=== PATIENT | female | born 1965 | race Caucasian/White ===

== ENCOUNTER 2016-06-22 19:44 | Emergency (ER) | payer OTHER ==
[~2016-06-22] VITALS: Ht 160 cm; Wt 100.0 kg
[2016-06-22] MEDS ORDERED: METF500T4 PO (19:56)
[2016-06-22 20:01] LABS: GLUCOSE,POINT OF CARE 263 MG/DL (70-110)
[2016-06-22 21:15] LABS: GLUCOSE,POINT OF CARE 317 MG/DL (70-110)
[2016-06-22] MEDS ORDERED: SODIUM CHLORIDE 0.9% 500 ML IV ONE (21:30)
[2016-06-22] MEDS ORDERED: INSULIN REGULAR, HUMAN 100 UNITS/ML IVP ONE (21:30)
[2016-06-22 21:41] LABS: BASOPHILS % (AUTO) 0.5 % (0.0-2.0); EOSINOPHILS % (AUTO) 2.8 % (1.0-6.0); HEMATOCRIT 36.1 % (36-46); HEMOGLOBIN 12.3 g/dL (12.0-16.0); LYMPHOCYTES # (AUTO) 2.6 K/uL (1.0-4.8); LYMPHOCYTES % (AUTO) 25.5 % (22.0-44.0); MEAN CORPUSCULAR HEMOGLOBIN 29.3 pg (26.0-34.0); MEAN CORPUSCULAR VOLUME 86 fL (80-100); MONOCYTES # (AUTO) 0.5 K/uL (0.1-1.0); MONOCYTES % (AUTO) 5.2 % (2.0-9.0); NEUTROPHILS # (AUTO) 6.8 K/uL (1.8-7.7); PLATELET COUNT (AUTO) 233 K/uL (150-450); RED CELL DISTRIBUTION WIDTH 13.9 % (11.5-14.5); WHITE BLOOD COUNT (AUTO) 10.3 K/uL (4.5-11.0)
[2016-06-22 21:50] LABS: ANION GAP 6 mmol/L (8-16); CALCIUM, TOTAL 9.3 mg/dL (8.8-10.5); CARBON DIOXIDE 30 mmol/L (22-29); CHLORIDE 100 mmol/L (98-107); CREATININE 0.68 mg/dL (0.60-1.30); GLOMERULAR FILTR. RATE CALC > 60 mL/min (>60); POTASSIUM 4.3 mmol/L (3.5-5.1); SODIUM SERUM 136 mmol/L (136-145); UREA NITROGEN, BLOOD 14 mg/dL (7-18)
[2016-06-22 21:50] LABS: APPEARANCE,URINE CLOUDY (CLEAR); GLUCOSE, URINE (UA) >=1000 mg/dL (NEGATIVE); KETONES,URINE NEGATIVE (NEGATIVE); LEUKOCYTE ESTERASE ,URINE NEGATIVE (NEGATIVE); OCCULT BLOOD,URINE NEGATIVE (NEGATIVE); PH,URINE 7.5 (5.0-8.0); PROTEIN,URINE TRACE (NEGATIVE)
[2016-06-22 21:52] LABS: ADD UA MICROSCOPIC YES
[2016-06-22 21:54] LABS: PROTHROMBIN TIME 10.4 SEC (9.4-11.6)
[2016-06-22 21:56] LABS: ALANINE AMINOTRANSFERASE 53 U/L (12-78); ALBUMIN 3.3 g/dL (3.4-5.0); ASPARTATE AMINOTRANSFERASE 24 U/L (15-37); BILIRUBIN,TOTAL 0.2 mg/dL (0.1-1.0); CREATINE KINASE, TOTAL 56 U/L (26-192); TOTAL PROTEIN, SERUM 8.1 g/dL (6.4-8.2)
[2016-06-22 22:07] LABS: B-TYPE NATRIURETIC PEPTIDE < 5 pg/mL (0-100)
[2016-06-22 22:20] LABS: RBC,URINE None Seen /HPF (0-2); SQUAMOUS EPITHELIAL CELL,UR Rare /LPF (None Seen); WBC,URINE 0-2 /HPF (0-5)
[2016-06-22 23:11] LABS: GLUCOSE,POINT OF CARE 205 MG/DL (70-110)
[2016-06-22] MEDS ORDERED: KETOROLAC TROMETHAMINE 30 MG/ML VIAL IVP ONE (23:30)
[2016-06-23 00:09] VITALS: BP 125/79
== END 2016-06-23 00:12 | disposition home or self-care (01) ==
LOC: EMS 19:50
DX: R25.2 Cramp and spasm (principal); M54.5 Low back pain; E11.9 Type 2 diabetes mellitus without complications
CPT/HCPCS: 36415; 71010; 80053; 81001; 82550; 82962; 83880; 84484; 85025; 85610; 85730; 87086; 93005; 96361; 96374; 96375; 99285; J1815; J1885; J7040

== ENCOUNTER 2020-12-23 13:45 | Emergency (ER) | payer SELFPAY ==
[~2020-12-23] VITALS: Ht 167.6 cm; Wt 95.0 kg
[~2020-12-23 13:45] MED LIST: METF-960 PO
[2020-12-23] MEDS ORDERED: KETOROLAC TROMETHAMINE 60 MG/2 ML VIAL IM ONE (15:30)
[2020-12-23] MEDS ORDERED: ONDANSETRON HCL 4 MG TABLET PO ONE (15:30)
[2020-12-23] MEDS ORDERED: DIAZEPAM 5 MG TABLET PO ONE (15:45)
[2020-12-23 16:56] VITALS: BP 131/72
== END 2020-12-23 17:36 | disposition home or self-care (01) ==
LOC: EMS 13:49
DX: S46.011A Strain of muscle(s) and tendon(s) of the rotator cuff of right shoulder, initial encounter (principal); S40.012A Contusion of left shoulder, initial encounter; S70.02XA Contusion of left hip, initial encounter; E11.9 Type 2 diabetes mellitus without complications; Z79.84 Long term (current) use of oral hypoglycemic drugs; W19.XXXA Unspecified fall, initial encounter; Y93.89 Activity, other specified; Y92.89 Other specified places as the place of occurrence of the external cause; Y99.8 Other external cause status
CPT/HCPCS: 70450; 72125; 73030 ×2; 73060; 73503; 96372; 99285; J1885; Q0162

== ENCOUNTER 2021-04-28 20:55 | Inpatient (IN) | payer MEDICAID ==
[~2021-04-28] VITALS: Ht 162.6 cm; Wt 89.7 kg
[~2021-04-28 20:55] MED LIST changes: +METF-1211 PO; -METF-960 PO
[2021-04-28] MEDS ORDERED: KETOROLAC TROMETHAMINE 30 MG/ML VIAL IVP ONE (21:30)
[2021-04-28] MEDS ORDERED: SODIUM CHLORIDE 0.9% 1,000 ML IV ONE (21:30)
[2021-04-28 21:37] LABS: HEMATOCRIT 38.2 % (36-46); HEMOGLOBIN 13.2 g/dL (12.0-16.0); MEAN CORPUSCULAR HEMOGLOBIN 29.6 pg (26.0-34.0); MEAN CORPUSCULAR HGB CONC 34.5 G/dL (31.0-37.0); MEAN CORPUSCULAR VOLUME 86 fL (80-100); PLATELET COUNT (AUTO) 170 K/uL (150-450); RED BLOOD CELL COUNT(AUTO) 4.45 MIL/uL (4.00-5.20); RED CELL DISTRIBUTION WIDTH 13.4 % (11.5-14.5)
[2021-04-28 21:47] LABS: COVID AG,FIA SOURCE NASAL SWAB
[2021-04-28 21:55] LABS: LACTIC ACID 2.3 mmol/L (0.4-2.0)
[2021-04-28 21:56] LABS: ALANINE AMINOTRANSFERASE 32 U/L (12-78); ALBUMIN 2.7 g/dL (3.4-5.0); ALKALINE PHOSPHATASE 141 U/L (46-116); ANION GAP 18 mmol/L (8-16); ASPARTATE AMINOTRANSFERASE 22 U/L (15-37); BILIRUBIN,TOTAL 0.7 mg/dL (0.1-1.0); CALCIUM, TOTAL 9.1 mg/dL (8.8-10.5); CARBON DIOXIDE 19 mmol/L (22-29); CHLORIDE 92 mmol/L (98-107); GLOMERULAR FILTR. RATE CALC 52 mL/min (>60); SODIUM SERUM 129 mmol/L (136-145); TOTAL PROTEIN, SERUM 8.3 g/dL (6.4-8.2); UREA NITROGEN, BLOOD 24 mg/dL (7-18)
[2021-04-28 21:58] LABS: BAND NEUTROPHILS % (MANUAL) 20 % (0-5); LYMPHOCYTES % (MANUAL) 2 % (22-44); MONOCYTES % (MANUAL) 5 % (2-9); SEGMENTED NEUTROPHILS % 73 % (40-70)
[2021-04-28 22:01] LABS: GLUCOSE,RANDOM 479 mg/dL (70-110)
[2021-04-28] MEDS ORDERED: POTASSIUM CHLORIDE 40 MEQ in SODIUM CHLORIDE 0.45% 1,000 ML IV PRN (22:15)
[2021-04-28] MEDS ORDERED: 0.9% SODIUM CHLORIDE 10 ML SYRINGE IVP PRN (22:15)
[2021-04-28] MEDS ORDERED: DEXTROSE 5%-0.45% SODIUM CHL 1,000 ML IV PRN ×2 (22:15→22:30)
[2021-04-28] MEDS ORDERED: INSULIN LISPRO 100 UNITS/ML SQ PRN (22:15)
[2021-04-28] MEDS ORDERED: INSULIN REGULAR, HUMAN 100 UNITS/ML IVP PRN (22:15)
[2021-04-28] MEDS ORDERED: POTASSIUM CHL 20 MEQ/0.45% NS 1,000 ML IV PRN ×2 (22:15→22:30)
[2021-04-28] MEDS ORDERED: INSULIN REGULAR, HUMAN 100 UNITS/ML IVP ONE ×2 (22:15→22:30)
[2021-04-28] MEDS ORDERED: SODIUM CHLORIDE 0.9% 2,750 ML IV ONE (22:15)
[2021-04-28] MEDS ORDERED: CefTRIAXone 1 GM/DEXTROSE 50 ML IV SCH (22:15)
[2021-04-28] MEDS ORDERED: SODIUM CHLORIDE 0.45% 1,000 ML IV PRN ×2 (22:15→22:30)
[2021-04-28] MEDS ORDERED: INSULIN REGULAR, HUMAN 100 UNITS in SODIUM CHLORIDE 0.9% 99 ML IV PRN ×2 (22:15)
[2021-04-28] MEDS ORDERED: SODIUM CHLORIDE 0.9% 1,000 ML IV SCH ×3 (22:15→22:30)
[2021-04-28] MEDS ORDERED: INSULIN GLARGINE,HUM.REC.ANLOG 100 UNITS/ML SQ SCH (22:15)
[2021-04-28] MEDS ORDERED: DEXTROSE 50%-WATER 25 GM/50 ML SYRINGE IVP PRN ×3 (22:15→22:30)
[2021-04-28] MEDS ORDERED: POTASSIUM PHOS,M-BASIC-D-BASIC 20 MMOL in SODIUM CHLORIDE 0.45% 500 ML IV PRN (22:30)
[2021-04-28] MEDS ORDERED: CefTRIAXone 1 GM/DEXTROSE 50 ML IV ONE (22:30)
[2021-04-28 22:35] LABS: INR 1.1 (0.9-1.1)
[2021-04-28 22:39] LABS: HEMOGLOBIN 11.2 g/dL (12.0-16.0); MEAN CORPUSCULAR HEMOGLOBIN 29.4 pg (26.0-34.0); MEAN CORPUSCULAR HGB CONC 34.1 G/dL (31.0-37.0); MEAN CORPUSCULAR VOLUME 86 fL (80-100); PLATELET COUNT (AUTO) 153 K/uL (150-450); RED BLOOD CELL COUNT(AUTO) 3.82 MIL/uL (4.00-5.20)
[2021-04-28 22:41] LABS: PHOSPHORUS 2.2 mg/dL (2.5-4.9)
[2021-04-28 22:45] LABS: ABG CARBOXYHEMOGLOBIN 0.1 % (0.0-1.5); ABG HCO3 20.2 mmol/L (22.0-26.0); ABG METHEMOGLOBIN 0.2 % (0.0-1.5); ABG OXYGEN CONTENT 14.9 mL/dL (15.0-23.0); ABG OXYHEMOGLOBIN 94.7 % (94.0-100.0); ABG PCO2 31 mmHg (35-45); ABG PH 7.399 (7.35-7.450); ABG TOTAL HEMOGLOBIN 11.1 G/dL (12.0-18.0); PO2, ARTERIAL BG 78.3 mmHg (84.0-92.0); SOURCE, BLOOD GAS ARTERIAL; TEMPERATURE, FAHRENHEIT, BG 98.6 FAHREN (96.0-98.6)
[2021-04-28 22:46] LABS: SITE, BLOOD GAS RT RADIAL
[2021-04-28 22:49] LABS: GLUCOSE,POINT OF CARE 459 MG/DL (70-110)
[2021-04-28 22:52] LABS: BAND NEUTROPHILS % (MANUAL) 16 % (0-5); MONOCYTES % (MANUAL) 5 % (2-9)
[2021-04-28 22:53] LABS: SEGMENTED NEUTROPHILS % 72 % (40-70)
[2021-04-28 22:54] LABS: LYMPHOCYTES % (MANUAL) 7 % (22-44)
[2021-04-28] MEDS: INSULIN REGULAR, HUMAN 100 UNITS in SODIUM CHLORIDE 0.9% 99 ML IV PRN ×2 (23:10)
[2021-04-28 23:19] LABS: CALCIUM, TOTAL 7.6 mg/dL (8.8-10.5); CREATININE 1.02 mg/dL (0.60-1.30); POTASSIUM 3.8 mmol/L (3.5-5.1)
[2021-04-28] MEDS: ATORVASTATIN CALCIUM 40 MG TABLET PO SCH (23:47)
[2021-04-28] MEDS: ASPIRIN 325 MG TABLET PO SCH (23:47)
[2021-04-28] MEDS: HEPARIN SODIUM,PORCINE 5,000 UNITS/ML VIAL SQ SCH (23:48)
[2021-04-28] MEDS: ONDANSETRON HCL 4 MG/2 ML VIAL IVP PRN (23:54)
[2021-04-29 00:14] LABS: BILIRUBIN,URINE NEGATIVE (NEGATIVE); GLUCOSE, URINE (UA) >=1000 mg/dL (NEGATIVE); KETONES,URINE >=80 mg/dL (NEGATIVE); LEUKOCYTE ESTERASE ,URINE NEGATIVE (NEGATIVE); NITRATE,URINE NEGATIVE (NEGATIVE); OCCULT BLOOD,URINE MODERATE (NEGATIVE); PH,URINE 5.5 (5.0-8.0); PROTEIN,URINE SEE CONFIRM (NEGATIVE); UROBILINOGEN,URINE 0.2 mg/dL (<=1.0)
[2021-04-29 00:19] LABS: GLUCOSE,POINT OF CARE 354 MG/DL (70-110)
[2021-04-29] MEDS: NOREPINEPHRINE 4 MG/D5%-WATER 250 ML IV PRN ×2 (00:24→07:11)
[2021-04-29] MEDS: INSULIN REGULAR, HUMAN 100 UNITS in SODIUM CHLORIDE 0.9% 99 ML IV PRN ×4 (01:16→08:13)
[2021-04-29] MEDS: INSULIN REGULAR, HUMAN 100 UNITS/ML IVP PRN ×4 (01:18→09:29)
[2021-04-29 01:19] LABS: GLUCOSE,POINT OF CARE 349 MG/DL (70-110)
[2021-04-29] MEDS ORDERED: *CLINICAL-MEROPENEM DOSING CLINICAL ONE ×3 (01:30→03:30)
[2021-04-29] MEDS: MEROPENEM 1 GM in SODIUM CHLORIDE 0.9% 100 ML IV SCH ×3 (02:01→17:47)
[2021-04-29 02:23] LABS: GLUCOSE,POINT OF CARE 297 MG/DL (70-110)
[2021-04-29 03:00] VITALS: BP 113/50
[2021-04-29] MEDS: ACETAMINOPHEN 325 MG TABLET PO PRN ×3 (03:01→18:26)
[2021-04-29 04:00] VITALS: BP 133/65
[2021-04-29 04:29] LABS: ALANINE AMINOTRANSFERASE 25 U/L (12-78); ALKALINE PHOSPHATASE 110 U/L (46-116); ANION GAP 7 mmol/L (8-16); ASPARTATE AMINOTRANSFERASE 21 U/L (15-37); BILIRUBIN,TOTAL 0.3 mg/dL (0.1-1.0); CALCIUM, TOTAL 7.5 mg/dL (8.8-10.5); CARBON DIOXIDE 23 mmol/L (22-29); CHLORIDE 105 mmol/L (98-107); CREATININE 0.93 mg/dL (0.60-1.30); GLOMERULAR FILTR. RATE CALC > 60 mL/min (>60); GLUCOSE,RANDOM 264 mg/dL (70-110); PHOSPHORUS 1.9 mg/dL (2.5-4.9); POTASSIUM 3.8 mmol/L (3.5-5.1); SODIUM SERUM 135 mmol/L (136-145); TOTAL PROTEIN, SERUM 6.6 g/dL (6.4-8.2); UREA NITROGEN, BLOOD 19 mg/dL (7-18)
[2021-04-29] MEDS: POTASSIUM CHLORIDE 40 MEQ in SODIUM CHLORIDE 0.45% 1,000 ML IV PRN ×2 (05:16→12:25)
[2021-04-29 05:50] LABS: APPEARANCE,URINE CLEAR (CLEAR)
[2021-04-29] MEDS: ONDANSETRON HCL 4 MG/2 ML VIAL IVP PRN ×4 (06:18→22:45)
[2021-04-29 06:44] LABS: BACTERIA,URINE Moderate /HPF (None Seen); SQUAMOUS EPITHELIAL CELL,UR Few /LPF (None Seen); SULFOSALICYLIC ACID,URINE 2+ (Negative)
[2021-04-29 08:00] VITALS: BP 121/63
[2021-04-29 08:03] LABS: ANION GAP 8 mmol/L (8-16); CALCIUM, TOTAL 7.8 mg/dL (8.8-10.5); CARBON DIOXIDE 23 mmol/L (22-29); CHLORIDE 104 mmol/L (98-107); CREATININE 0.83 mg/dL (0.60-1.30); GLOMERULAR FILTR. RATE CALC > 60 mL/min (>60); GLUCOSE,RANDOM 229 mg/dL (70-110); POTASSIUM 3.8 mmol/L (3.5-5.1); SODIUM SERUM 135 mmol/L (136-145); UREA NITROGEN, BLOOD 16 mg/dL (7-18)
[2021-04-29] MEDS: FAMOTIDINE 20 MG TABLET PO SCH ×2 (09:00→21:00)
[2021-04-29] MEDS: DOCUSATE SODIUM 100 MG CAPSULE PO SCH ×2 (09:00→21:00)
[2021-04-29] MEDS: HEPARIN SODIUM,PORCINE 5,000 UNITS/ML VIAL SQ SCH ×2 (09:10→15:11)
[2021-04-29] MEDS ORDERED: SODIUM CHLORIDE 0.9% 250 ML IV ONE (10:40)
[2021-04-29 12:00] VITALS: BP 127/41
[2021-04-29 12:09] LABS: ANION GAP 6 mmol/L (8-16); CALCIUM, TOTAL 7.9 mg/dL (8.8-10.5); CARBON DIOXIDE 23 mmol/L (22-29); CHLORIDE 106 mmol/L (98-107); GLOMERULAR FILTR. RATE CALC > 60 mL/min (>60); GLUCOSE,RANDOM 158 mg/dL (70-110); POTASSIUM 4.3 mmol/L (3.5-5.1); SODIUM SERUM 135 mmol/L (136-145); UREA NITROGEN, BLOOD 15 mg/dL (7-18)
[2021-04-29] MEDS ORDERED: DEXTROSE 50%-WATER 25 GM/50 ML SYRINGE IVP PRN (12:45)
[2021-04-29] MEDS: SODIUM CHLORIDE 0.9% 1,000 ML IV SCH (12:53)
[2021-04-29] MEDS: INSULIN GLARGINE,HUM.REC.ANLOG 100 UNITS/ML SQ SCH ×2 (12:55→21:35)
[2021-04-29] MEDS: MORPHINE SULFATE 2 MG/ML SYRINGE IVP PRN ×3 (14:06→22:46)
[2021-04-29] MEDS: LEVOFLOXACIN 750 MG/D5% WATER 150 ML IV SCH (14:19)
[2021-04-29 16:00] VITALS: BP 119/63
[2021-04-29] MEDS: INSULIN LISPRO 100 UNITS/ML SQ PRN (18:32)
[2021-04-29 20:26] VITALS: BP 110/53
[2021-04-29] MEDS: ASPIRIN 325 MG TABLET PO SCH (21:00)
[2021-04-29] MEDS: ATORVASTATIN CALCIUM 40 MG TABLET PO SCH (21:00)
[2021-04-29 21:41] LABS: GLUCOSE,POINT OF CARE 217 MG/DL (70-110)
[2021-04-29 21:41] LABS: GLUCOSE,POINT OF CARE 295 MG/DL (70-110)
[2021-04-29 21:41] LABS: GLUCOSE,POINT OF CARE 178 MG/DL (70-110)
[2021-04-29 21:41] LABS: GLUCOSE,POINT OF CARE 154 MG/DL (70-110)
[2021-04-29 21:41] LABS: GLUCOSE,POINT OF CARE 258 MG/DL (70-110)
[2021-04-29 21:41] LABS: GLUCOSE,POINT OF CARE 231 MG/DL (70-110)
[2021-04-29 21:41] LABS: GLUCOSE,POINT OF CARE 227 MG/DL (70-110)
[2021-04-29 21:41] LABS: GLUCOSE,POINT OF CARE 212 MG/DL (70-110)
[2021-04-29 21:47] LABS: GLUCOSE,POINT OF CARE 134 MG/DL (70-110)
[2021-04-29 21:47] LABS: GLUCOSE,POINT OF CARE 198 MG/DL (70-110)
[2021-04-29 21:47] LABS: GLUCOSE,POINT OF CARE 192 MG/DL (70-110)
[2021-04-29 21:47] LABS: GLUCOSE,POINT OF CARE 162 MG/DL (70-110)
[2021-04-30] VITALS: BP 103/55
[2021-04-30] MEDS: HEPARIN SODIUM,PORCINE 5,000 UNITS/ML VIAL SQ SCH ×4 (01:10→23:49)
[2021-04-30] MEDS: SODIUM CHLORIDE 0.9% 1,000 ML IV SCH ×2 (01:11→11:49)
[2021-04-30] MEDS: INSULIN LISPRO 100 UNITS/ML SQ PRN ×3 (01:22→18:38)
[2021-04-30 01:31] LABS: GLUCOSE,POINT OF CARE 190 MG/DL (70-110)
[2021-04-30] MEDS: MEROPENEM 1 GM in SODIUM CHLORIDE 0.9% 100 ML IV SCH ×3 (03:22→17:26)
[2021-04-30] MEDS: ONDANSETRON HCL 4 MG/2 ML VIAL IVP PRN ×5 (03:22→23:49)
[2021-04-30] MEDS: MORPHINE SULFATE 2 MG/ML SYRINGE IVP PRN ×5 (03:23→20:43)
[2021-04-30 04:00] VITALS: BP 110/65
[2021-04-30 05:11] LABS: GLUCOSE,POINT OF CARE 179 MG/DL (70-110)
[2021-04-30 05:19] LABS: BASOPHILS % (AUTO) 0.2 % (0.0-2.0); EOSINOPHILS % (AUTO) 0.4 % (1.0-6.0); HEMATOCRIT 29.3 % (36-46); HEMOGLOBIN 10.3 g/dL (12.0-16.0); LYMPHOCYTES # (AUTO) 0.7 K/uL (1.0-4.8); LYMPHOCYTES % (AUTO) 5.6 % (22.0-44.0); MEAN CORPUSCULAR HGB CONC 35.2 G/dL (31.0-37.0); MEAN CORPUSCULAR VOLUME 85 fL (80-100); MONOCYTES # (AUTO) 0.7 K/uL (0.1-1.0); MONOCYTES % (AUTO) 5.5 % (2.0-9.0); NEUTROPHILS # (AUTO) 10.8 K/uL (1.8-7.7); PLATELET COUNT (AUTO) 126 K/uL (150-450); RED BLOOD CELL COUNT(AUTO) 3.44 MIL/uL (4.00-5.20); RED CELL DISTRIBUTION WIDTH 13.7 % (11.5-14.5)
[2021-04-30 05:21] LABS: NEUTROPHILS % (AUTO) 88.3 % (40.0-70.0)
[2021-04-30 08:00] VITALS: BP 131/68
[2021-04-30] MEDS: FAMOTIDINE 20 MG TABLET PO SCH ×2 (08:13→20:28)
[2021-04-30] MEDS: DOCUSATE SODIUM 100 MG CAPSULE PO SCH ×2 (08:14→20:28)
[2021-04-30] MEDS: INSULIN GLARGINE,HUM.REC.ANLOG 100 UNITS/ML SQ SCH ×2 (08:16→20:43)
[2021-04-30 11:21] LABS: ANION GAP 13 mmol/L (8-16); CALCIUM, TOTAL 7.7 mg/dL (8.8-10.5); CARBON DIOXIDE 20 mmol/L (22-29); CHLORIDE 102 mmol/L (98-107); CREATININE 0.59 mg/dL (0.60-1.30); GLUCOSE,RANDOM 202 mg/dL (70-110); POTASSIUM 3.6 mmol/L (3.5-5.1); SODIUM SERUM 135 mmol/L (136-145); UREA NITROGEN, BLOOD 14 mg/dL (7-18)
[2021-04-30 11:22] LABS: GLOMERULAR FILTR. RATE CALC > 60 mL/min (>60)
[2021-04-30 11:27] LABS: HEMOGLOBIN A1C 10.9 % (3.8-5.6)
[2021-04-30 11:28] LABS: ALANINE AMINOTRANSFERASE 29 U/L (12-78); ALBUMIN 1.7 g/dL (3.4-5.0); ALKALINE PHOSPHATASE 98 U/L (46-116); ASPARTATE AMINOTRANSFERASE 29 U/L (15-37); BILIRUBIN,TOTAL 0.4 mg/dL (0.1-1.0); TOTAL PROTEIN, SERUM 5.9 g/dL (6.4-8.2)
[2021-04-30 12:00] VITALS: BP 160/94
[2021-04-30 12:51] LABS: GLUCOSE,POINT OF CARE 194 MG/DL (70-110)
[2021-04-30] MEDS: LEVOFLOXACIN 750 MG/D5% WATER 150 ML IV SCH (14:16)
[2021-04-30 15:20] VITALS: BP 125/74
[2021-04-30 19:55] VITALS: BP 141/76
[2021-04-30] MEDS: ACETAMINOPHEN 325 MG TABLET PO PRN (20:27)
[2021-04-30] MEDS: ASPIRIN 325 MG TABLET PO SCH (20:27)
[2021-04-30] MEDS: ATORVASTATIN CALCIUM 40 MG TABLET PO SCH (20:27)
[2021-05-01] VITALS (7 sets, daily range): BP systolic 132–157; BP diastolic 59–76
[2021-05-01] MEDS: INSULIN LISPRO 100 UNITS/ML SQ PRN ×4 (00:04→18:47)
[2021-05-01 00:07] LABS: GLUCOMETER DEV NAME(LOC) 5N.1C; GLUCOSE,POINT OF CARE 181 MG/DL (70-110)
[2021-05-01 00:07] LABS: GLUCOMETER DEV NAME(LOC) 5N.1C; GLUCOSE,POINT OF CARE 189 MG/DL (70-110)
[2021-05-01] MEDS: SODIUM CHLORIDE 0.9% 1,000 ML IV SCH ×2 (01:27→15:02)
[2021-05-01] MEDS: MEROPENEM 1 GM in SODIUM CHLORIDE 0.9% 100 ML IV SCH ×3 (01:28→19:10)
[2021-05-01 01:36] LABS: GLUCOMETER DEV NAME(LOC) 5S.2B; GLUCOSE,POINT OF CARE 202 MG/DL (70-110)
[2021-05-01] MEDS ORDERED: GADOTERATE MEGLUMINE 10 MMOL/20 ML VIAL IVP ONE (08:19)
[2021-05-01 08:37] LABS: BASOPHILS % (AUTO) 0.7 % (0.0-2.0); EOSINOPHILS % (AUTO) 0.6 % (1.0-6.0); HEMATOCRIT 30.8 % (36-46); HEMOGLOBIN 10.8 g/dL (12.0-16.0); LYMPHOCYTES # (AUTO) 1.1 K/uL (1.0-4.8); LYMPHOCYTES % (AUTO) 10.6 % (22.0-44.0); MEAN CORPUSCULAR HEMOGLOBIN 29.4 pg (26.0-34.0); MEAN CORPUSCULAR HGB CONC 34.9 G/dL (31.0-37.0); MEAN CORPUSCULAR VOLUME 84 fL (80-100); MONOCYTES # (AUTO) 0.8 K/uL (0.1-1.0); MONOCYTES % (AUTO) 8.2 % (2.0-9.0); NEUTROPHILS # (AUTO) 8.2 K/uL (1.8-7.7); NEUTROPHILS % (AUTO) 79.9 % (40.0-70.0); PLATELET COUNT (AUTO) 136 K/uL (150-450); RED BLOOD CELL COUNT(AUTO) 3.66 MIL/uL (4.00-5.20)
[2021-05-01 09:05] LABS: ALANINE AMINOTRANSFERASE 28 U/L (12-78); ALBUMIN 1.5 g/dL (3.4-5.0); ALKALINE PHOSPHATASE 119 U/L (46-116); ANION GAP 8 mmol/L (8-16); ASPARTATE AMINOTRANSFERASE 29 U/L (15-37); BILIRUBIN,TOTAL 0.3 mg/dL (0.1-1.0); CALCIUM, TOTAL 7.7 mg/dL (8.8-10.5); CARBON DIOXIDE 23 mmol/L (22-29); CHLORIDE 105 mmol/L (98-107); CHOL/HDL RATIO 13.7 (3.9-5.7); CHOLESTEROL 123 mg/dL (131-200); CREATININE 0.52 mg/dL (0.60-1.30); FREE T4 (FREE THYROXINE) 1.42 ng/dL (0.76-1.46); GLUCOSE,RANDOM 179 mg/dL (70-110); HDL CHOLESTEROL 9 mg/dL (40-60); LDL CHOL (CALC.) 62 mg/dL (0-130); POTASSIUM 3.3 mmol/L (3.5-5.1); SODIUM SERUM 136 mmol/L (136-145); THYROID STIMULATING HORMONE 0.67 uIU/mL (0.36-3.74); TOTAL PROTEIN, SERUM 5.9 g/dL (6.4-8.2); TRIGLYCERIDES 259 mg/dL (15-150); UREA NITROGEN, BLOOD 12 mg/dL (7-18)
[2021-05-01] MEDS: HEPARIN SODIUM,PORCINE 5,000 UNITS/ML VIAL SQ SCH ×3 (09:06→23:51)
[2021-05-01] MEDS: DOCUSATE SODIUM 100 MG CAPSULE PO SCH ×2 (09:06→20:27)
[2021-05-01] MEDS: FAMOTIDINE 20 MG TABLET PO SCH ×2 (09:06→20:27)
[2021-05-01 09:10] LABS: GLOMERULAR FILTR. RATE CALC > 60 mL/min (>60)
[2021-05-01] MEDS: INSULIN GLARGINE,HUM.REC.ANLOG 100 UNITS/ML SQ SCH ×2 (09:11→21:02)
[2021-05-01] MEDS: MORPHINE SULFATE 2 MG/ML SYRINGE IVP PRN ×2 (09:12→15:47)
[2021-05-01] MEDS: ONDANSETRON HCL 4 MG/2 ML VIAL IVP PRN ×2 (10:12→20:27)
[2021-05-01 12:22] LABS: GLUCOMETER DEV NAME(LOC) 5N.1C; GLUCOSE,POINT OF CARE 144 MG/DL (70-110)
[2021-05-01] MEDS ORDERED: POTASSIUM CHLORIDE 20 MEQ ER TABLET PO ONE (12:45)
[2021-05-01] MEDS: LEVOFLOXACIN 750 MG/D5% WATER 150 ML IV SCH (15:01)
[2021-05-01] MEDS: ASPIRIN 325 MG TABLET PO SCH (20:27)
[2021-05-01] MEDS: ATORVASTATIN CALCIUM 40 MG TABLET PO SCH (20:27)
[2021-05-01 21:52] LABS: GLUCOMETER DEV NAME(LOC) 5S.2B; GLUCOSE,POINT OF CARE 182 MG/DL (70-110)
[2021-05-02] MEDS: MEROPENEM 1 GM in SODIUM CHLORIDE 0.9% 100 ML IV SCH ×3 (02:59→18:12)
[2021-05-02 04:59] VITALS: BP 127/76
[2021-05-02] MEDS: SODIUM CHLORIDE 0.9% 1,000 ML IV SCH ×2 (05:30→18:11)
[2021-05-02] MEDS: INSULIN LISPRO 100 UNITS/ML SQ PRN ×4 (05:32→21:15)
[2021-05-02 06:37] LABS: GLUCOMETER DEV NAME(LOC) 5N.1C; GLUCOSE,POINT OF CARE 174 MG/DL (70-110)
[2021-05-02 06:37] LABS: GLUCOMETER DEV NAME(LOC) 5N.1C; GLUCOSE,POINT OF CARE 156 MG/DL (70-110)
[2021-05-02 06:38] LABS: GLUCOMETER DEV NAME(LOC) 5N.1C; GLUCOSE,POINT OF CARE 154 MG/DL (70-110)
[2021-05-02 06:38] LABS: GLUCOMETER DEV NAME(LOC) 5N.1C; GLUCOSE,POINT OF CARE 135 MG/DL (70-110)
[2021-05-02 07:12] LABS: BASOPHILS % (AUTO) 0.7 % (0.0-2.0); HEMATOCRIT 28.4 % (36-46); HEMOGLOBIN 10.1 g/dL (12.0-16.0); LYMPHOCYTES # (AUTO) 1.7 K/uL (1.0-4.8); LYMPHOCYTES % (AUTO) 15.2 % (22.0-44.0); MEAN CORPUSCULAR HEMOGLOBIN 29.8 pg (26.0-34.0); MEAN CORPUSCULAR HGB CONC 35.3 G/dL (31.0-37.0); MEAN CORPUSCULAR VOLUME 84 fL (80-100); MONOCYTES # (AUTO) 0.9 K/uL (0.1-1.0); MONOCYTES % (AUTO) 8.4 % (2.0-9.0); NEUTROPHILS # (AUTO) 8.3 K/uL (1.8-7.7); NEUTROPHILS % (AUTO) 74.7 % (40.0-70.0); PLATELET COUNT (AUTO) 157 K/uL (150-450); RED BLOOD CELL COUNT(AUTO) 3.38 MIL/uL (4.00-5.20)
[2021-05-02 07:17] VITALS: BP 132/74
[2021-05-02 07:29] LABS: ALANINE AMINOTRANSFERASE 23 U/L (12-78); ALBUMIN 1.4 g/dL (3.4-5.0); ALKALINE PHOSPHATASE 87 U/L (46-116); ANION GAP 3 mmol/L (8-16); ASPARTATE AMINOTRANSFERASE 21 U/L (15-37); BILIRUBIN,TOTAL 0.4 mg/dL (0.1-1.0); CALCIUM, TOTAL 7.8 mg/dL (8.8-10.5); CARBON DIOXIDE 26 mmol/L (22-29); CHLORIDE 106 mmol/L (98-107); CREATININE 0.54 mg/dL (0.60-1.30); GLUCOSE,RANDOM 167 mg/dL (70-110); POTASSIUM 3.7 mmol/L (3.5-5.1); SODIUM SERUM 135 mmol/L (136-145); TOTAL PROTEIN, SERUM 5.5 g/dL (6.4-8.2); UREA NITROGEN, BLOOD 10 mg/dL (7-18)
[2021-05-02 07:31] LABS: GLOMERULAR FILTR. RATE CALC > 60 mL/min (>60)
[2021-05-02] MEDS: FAMOTIDINE 20 MG TABLET PO SCH ×2 (08:13→20:13)
[2021-05-02] MEDS: DOCUSATE SODIUM 100 MG CAPSULE PO SCH ×2 (08:13→20:12)
[2021-05-02] MEDS: INSULIN GLARGINE,HUM.REC.ANLOG 100 UNITS/ML SQ SCH ×2 (08:14→21:16)
[2021-05-02] MEDS: HEPARIN SODIUM,PORCINE 5,000 UNITS/ML VIAL SQ SCH ×2 (08:14→18:11)
[2021-05-02 15:49] VITALS: BP 133/89
[2021-05-02 19:48] LABS: GLUCOMETER DEV NAME(LOC) 5N.1C; GLUCOSE,POINT OF CARE 197 MG/DL (70-110)
[2021-05-02 19:48] LABS: GLUCOMETER DEV NAME(LOC) 5N.1C; GLUCOSE,POINT OF CARE 130 MG/DL (70-110)
[2021-05-02] MEDS: ASPIRIN 325 MG TABLET PO SCH (20:13)
[2021-05-02] MEDS: ATORVASTATIN CALCIUM 40 MG TABLET PO SCH (20:13)
[2021-05-02 20:52] VITALS: BP 147/71
[2021-05-03 00:25] VITALS: BP 128/60
[2021-05-03] MEDS: HEPARIN SODIUM,PORCINE 5,000 UNITS/ML VIAL SQ SCH ×4 (00:34→23:56)
[2021-05-03] MEDS: INSULIN LISPRO 100 UNITS/ML SQ PRN ×5 (02:01→20:27)
[2021-05-03] MEDS: MEROPENEM 1 GM in SODIUM CHLORIDE 0.9% 100 ML IV SCH ×2 (02:02→09:37)
[2021-05-03 02:18] LABS: GLUCOMETER DEV NAME(LOC) 5N.1C; GLUCOSE,POINT OF CARE 226 MG/DL (70-110)
[2021-05-03 02:18] LABS: GLUCOMETER DEV NAME(LOC) 5N.1C; GLUCOSE,POINT OF CARE 195 MG/DL (70-110)
[2021-05-03] MEDS: SODIUM CHLORIDE 0.9% 1,000 ML IV SCH ×2 (04:29→08:11)
[2021-05-03 04:31] VITALS: BP 134/74
[2021-05-03 06:41] LABS: GLUCOMETER DEV NAME(LOC) 5N.1C; GLUCOSE,POINT OF CARE 157 MG/DL (70-110)
[2021-05-03 06:47] LABS: BASOPHILS % (AUTO) 0.5 % (0.0-2.0); EOSINOPHILS % (AUTO) 1.9 % (1.0-6.0); HEMATOCRIT 28.2 % (36-46); LYMPHOCYTES % (AUTO) 14.8 % (22.0-44.0); MEAN CORPUSCULAR HEMOGLOBIN 29.6 pg (26.0-34.0); MEAN CORPUSCULAR HGB CONC 35.6 G/dL (31.0-37.0); MEAN CORPUSCULAR VOLUME 83 fL (80-100); MONOCYTES % (AUTO) 7.3 % (2.0-9.0); NEUTROPHILS # (AUTO) 10.1 K/uL (1.8-7.7); NEUTROPHILS % (AUTO) 75.5 % (40.0-70.0); PLATELET COUNT (AUTO) 183 K/uL (150-450); RED BLOOD CELL COUNT(AUTO) 3.39 MIL/uL (4.00-5.20); RED CELL DISTRIBUTION WIDTH 14.4 % (11.5-14.5)
[2021-05-03 07:17] LABS: ALANINE AMINOTRANSFERASE 20 U/L (12-78); ALBUMIN 1.5 g/dL (3.4-5.0); ALKALINE PHOSPHATASE 90 U/L (46-116); ANION GAP 2 mmol/L (8-16); ASPARTATE AMINOTRANSFERASE 23 U/L (15-37); BILIRUBIN,TOTAL 0.5 mg/dL (0.1-1.0); CALCIUM, TOTAL 7.6 mg/dL (8.8-10.5); CARBON DIOXIDE 27 mmol/L (22-29); CHLORIDE 105 mmol/L (98-107); CREATININE 0.54 mg/dL (0.60-1.30); GLUCOSE,RANDOM 190 mg/dL (70-110); POTASSIUM 3.1 mmol/L (3.5-5.1); SODIUM SERUM 134 mmol/L (136-145); TOTAL PROTEIN, SERUM 5.6 g/dL (6.4-8.2); UREA NITROGEN, BLOOD 8 mg/dL (7-18)
[2021-05-03 07:21] LABS: GLOMERULAR FILTR. RATE CALC > 60 mL/min (>60)
[2021-05-03] MEDS ORDERED: POTASSIUM CHLORIDE 20 MEQ ER TABLET PO PRN (07:45)
[2021-05-03] MEDS ORDERED: POTASSIUM CHL 10 MEQ/WATER 50 ML IV PRN (07:45)
[2021-05-03] MEDS: ASPIRIN 325 MG TABLET PO SCH (08:08)
[2021-05-03] MEDS: FAMOTIDINE 20 MG TABLET PO SCH ×2 (08:08→20:21)
[2021-05-03] MEDS: DOCUSATE SODIUM 100 MG CAPSULE PO SCH ×2 (08:08→20:21)
[2021-05-03] MEDS: INSULIN GLARGINE,HUM.REC.ANLOG 100 UNITS/ML SQ SCH ×2 (08:38→20:26)
[2021-05-03 08:51] VITALS: BP 145/80
[2021-05-03 12:21] VITALS: BP 153/85
[2021-05-03 13:01] LABS: GLUCOMETER DEV NAME(LOC) 5S.2B; GLUCOSE,POINT OF CARE 203 MG/DL (70-110)
[2021-05-03] MEDS: ERTAPENEM SODIUM 1 GM in SODIUM CHLORIDE 0.9% 50 ML IV SCH (16:16)
[2021-05-03 17:11] VITALS: BP 135/94
[2021-05-03 19:46] VITALS: BP 149/75
[2021-05-03] MEDS: ATORVASTATIN CALCIUM 40 MG TABLET PO SCH (20:21)
[2021-05-04 00:17] VITALS: BP 137/67
[2021-05-04 04:28] VITALS: BP 133/70
[2021-05-04 05:36] LABS: GLUCOMETER DEV NAME(LOC) 5N.3; GLUCOSE,POINT OF CARE 152 MG/DL (70-110)
[2021-05-04 05:36] LABS: GLUCOMETER DEV NAME(LOC) 5N.3; GLUCOSE,POINT OF CARE 180 MG/DL (70-110)
[2021-05-04] MEDS: INSULIN LISPRO 100 UNITS/ML SQ PRN ×3 (05:42→17:41)
[2021-05-04 06:18] LABS: BASOPHILS % (AUTO) 0.5 % (0.0-2.0); EOSINOPHILS % (AUTO) 1.5 % (1.0-6.0); HEMATOCRIT 24.4 % (36-46); LYMPHOCYTES # (AUTO) 1.9 K/uL (1.0-4.8); LYMPHOCYTES % (AUTO) 17.6 % (22.0-44.0); MEAN CORPUSCULAR HEMOGLOBIN 30.6 pg (26.0-34.0); MEAN CORPUSCULAR HGB CONC 36.8 G/dL (31.0-37.0); MEAN CORPUSCULAR VOLUME 83 fL (80-100); MONOCYTES # (AUTO) 0.7 K/uL (0.1-1.0); MONOCYTES % (AUTO) 6.5 % (2.0-9.0); NEUTROPHILS # (AUTO) 7.8 K/uL (1.8-7.7); NEUTROPHILS % (AUTO) 73.9 % (40.0-70.0); PLATELET COUNT (AUTO) 223 K/uL (150-450); RED BLOOD CELL COUNT(AUTO) 2.93 MIL/uL (4.00-5.20)
[2021-05-04 06:38] LABS: ALANINE AMINOTRANSFERASE 20 U/L (12-78); ALBUMIN 1.5 g/dL (3.4-5.0); ALKALINE PHOSPHATASE 89 U/L (46-116); ANION GAP 1 mmol/L (8-16); ASPARTATE AMINOTRANSFERASE 21 U/L (15-37); BILIRUBIN,TOTAL 0.4 mg/dL (0.1-1.0); CALCIUM, TOTAL 7.8 mg/dL (8.8-10.5); CARBON DIOXIDE 30 mmol/L (22-29); CHLORIDE 105 mmol/L (98-107); CREATININE 0.56 mg/dL (0.60-1.30); GLUCOSE,RANDOM 213 mg/dL (70-110); PHOSPHORUS 3.4 mg/dL (2.5-4.9); POTASSIUM 3.8 mmol/L (3.5-5.1); SODIUM SERUM 136 mmol/L (136-145); TOTAL PROTEIN, SERUM 5.6 g/dL (6.4-8.2); UREA NITROGEN, BLOOD 16 mg/dL (7-18)
[2021-05-04 06:47] LABS: GLOMERULAR FILTR. RATE CALC > 60 mL/min (>60)
[2021-05-04 06:51] LABS: B-TYPE NATRIURETIC PEPTIDE 157 pg/mL (0-100)
[2021-05-04 07:51] VITALS: BP 108/70
[2021-05-04] MEDS: DOCUSATE SODIUM 100 MG CAPSULE PO SCH ×2 (08:15→21:11)
[2021-05-04] MEDS: FAMOTIDINE 20 MG TABLET PO SCH ×2 (08:15→21:11)
[2021-05-04] MEDS: HEPARIN SODIUM,PORCINE 5,000 UNITS/ML VIAL SQ SCH ×2 (08:15→17:35)
[2021-05-04] MEDS: INSULIN GLARGINE,HUM.REC.ANLOG 100 UNITS/ML SQ SCH ×2 (08:17→21:12)
[2021-05-04] MEDS ORDERED: VANCOMYCIN HCL 1.25 GM in DEXTROSE 5%-WATER 250 ML IV ONE (10:00)
[2021-05-04] MEDS ORDERED: IOHEXOL 350 MG/ML 100 ML VIAL ONE ×2 (12:00→16:45)
[2021-05-04] MEDS ORDERED: SODIUM CHLORIDE 0.9% 0 ML ONE (12:00)
[2021-05-04 12:16] VITALS: BP 101/64
[2021-05-04] MEDS ORDERED: VANCOMYCIN HCL 1.5 GM in DEXTROSE 5%-WATER 250 ML IV ONE (13:00)
[2021-05-04 15:58] VITALS: BP 112/68
[2021-05-04] MEDS ORDERED: SODIUM CHLORIDE 0.9% 100 ML ONE (16:45)
[2021-05-04] MEDS: ERTAPENEM SODIUM 1 GM in SODIUM CHLORIDE 0.9% 50 ML IV SCH (17:34)
[2021-05-04] MEDS: ONDANSETRON HCL 4 MG/2 ML VIAL IVP PRN (17:42)
[2021-05-04 19:19] VITALS: BP 110/69
[2021-05-04 20:21] LABS: GLUCOMETER DEV NAME(LOC) 5N.3; GLUCOSE,POINT OF CARE 202 MG/DL (70-110)
[2021-05-04 20:21] LABS: GLUCOMETER DEV NAME(LOC) 5N.1C; GLUCOSE,POINT OF CARE 252 MG/DL (70-110)
[2021-05-04 20:21] LABS: GLUCOMETER DEV NAME(LOC) 5N.1C; GLUCOSE,POINT OF CARE 254 MG/DL (70-110)
[2021-05-04] MEDS: ATORVASTATIN CALCIUM 40 MG TABLET PO SCH (21:11)
[2021-05-04] MEDS: ASPIRIN 325 MG TABLET PO SCH (21:11)
[2021-05-04] MEDS: ACETAMINOPHEN 325 MG TABLET PO PRN (21:17)
[2021-05-05] VITALS (7 sets, daily range): BP systolic 95–135; BP diastolic 51–69
[2021-05-05] MEDS: VANCOMYCIN HCL 1 GM/D5% WATER 200 ML IV SCH ×4 (00:02→23:25)
[2021-05-05] MEDS: HEPARIN SODIUM,PORCINE 5,000 UNITS/ML VIAL SQ SCH ×4 (00:03→23:33)
[2021-05-05] MEDS: INSULIN LISPRO 100 UNITS/ML SQ PRN ×5 (00:04→20:46)
[2021-05-05] MEDS: ONDANSETRON HCL 4 MG/2 ML VIAL IVP PRN ×2 (05:57→17:52)
[2021-05-05 06:11] LABS: GLUCOMETER DEV NAME(LOC) 5N.3; GLUCOSE,POINT OF CARE 196 MG/DL (70-110)
[2021-05-05 06:26] LABS: GLUCOMETER DEV NAME(LOC) 5N.1C; GLUCOSE,POINT OF CARE 200 MG/DL (70-110)
[2021-05-05 06:26] LABS: GLUCOMETER DEV NAME(LOC) 5N.1C; GLUCOSE,POINT OF CARE 200 MG/DL (70-110)
[2021-05-05 07:51] LABS: ANION GAP 2 mmol/L (8-16); CARBON DIOXIDE 32 mmol/L (22-29); CHLORIDE 99 mmol/L (98-107); CREATININE 0.56 mg/dL (0.60-1.30); GLUCOSE,RANDOM 209 mg/dL (70-110); POTASSIUM 3.8 mmol/L (3.5-5.1); SODIUM SERUM 133 mmol/L (136-145); UREA NITROGEN, BLOOD 15 mg/dL (7-18)
[2021-05-05 08:01] LABS: GLOMERULAR FILTR. RATE CALC > 60 mL/min (>60)
[2021-05-05] MEDS: DOCUSATE SODIUM 100 MG CAPSULE PO SCH ×2 (08:04→20:41)
[2021-05-05] MEDS: FAMOTIDINE 20 MG TABLET PO SCH ×2 (08:04→20:41)
[2021-05-05] MEDS: INSULIN GLARGINE,HUM.REC.ANLOG 100 UNITS/ML SQ SCH ×2 (08:05→20:44)
[2021-05-05] MEDS: LACTULOSE 20 GM/30 ML SOLUTION UDCUP PO PRN ×2 (13:28→20:45)
[2021-05-05] MEDS: ERTAPENEM SODIUM 1 GM in SODIUM CHLORIDE 0.9% 50 ML IV SCH (18:55)
[2021-05-05] MEDS: ATORVASTATIN CALCIUM 40 MG TABLET PO SCH (20:41)
[2021-05-05] MEDS: ASPIRIN 325 MG TABLET PO SCH (20:47)
[2021-05-05 22:27] LABS: GLUCOMETER DEV NAME(LOC) 5S.1; GLUCOSE,POINT OF CARE 223 MG/DL (70-110)
[2021-05-05 22:27] LABS: GLUCOMETER DEV NAME(LOC) 5S.1; GLUCOSE,POINT OF CARE 195 MG/DL (70-110)
[2021-05-06 00:39] VITALS: BP 104/51
[2021-05-06 04:00] VITALS: BP 107/51
[2021-05-06 06:06] LABS: GLUCOMETER DEV NAME(LOC) 5S.2B; GLUCOSE,POINT OF CARE 152 MG/DL (70-110)
[2021-05-06 06:06] LABS: GLUCOMETER DEV NAME(LOC) 5S.2B; GLUCOSE,POINT OF CARE 262 MG/DL (70-110)
[2021-05-06] MEDS: INSULIN LISPRO 100 UNITS/ML SQ PRN ×4 (06:08→21:17)
[2021-05-06] MEDS: ONDANSETRON HCL 4 MG/2 ML VIAL IVP PRN ×2 (06:16→12:58)
[2021-05-06 07:05] LABS: ANION GAP 2 mmol/L (8-16); CARBON DIOXIDE 31 mmol/L (22-29); CHLORIDE 105 mmol/L (98-107); CREATININE 0.58 mg/dL (0.60-1.30); GLUCOSE,RANDOM 147 mg/dL (70-110); POTASSIUM 3.8 mmol/L (3.5-5.1); SODIUM SERUM 138 mmol/L (136-145); UREA NITROGEN, BLOOD 8 mg/dL (7-18); VANCOMYCIN,RANDOM 17.9 mcg/mL (25.0-50.0)
[2021-05-06 07:13] LABS: GLOMERULAR FILTR. RATE CALC > 60 mL/min (>60)
[2021-05-06 07:20] VITALS: BP 119/69
[2021-05-06] MEDS: HEPARIN SODIUM,PORCINE 5,000 UNITS/ML VIAL SQ SCH ×3 (08:20→23:32)
[2021-05-06] MEDS: DOCUSATE SODIUM 100 MG CAPSULE PO SCH ×2 (08:20→21:14)
[2021-05-06] MEDS: FAMOTIDINE 20 MG TABLET PO SCH ×2 (08:20→21:14)
[2021-05-06] MEDS: INSULIN GLARGINE,HUM.REC.ANLOG 100 UNITS/ML SQ SCH ×2 (08:22→21:16)
[2021-05-06] MEDS: VANCOMYCIN HCL 1.25 GM in DEXTROSE 5%-WATER 250 ML IV SCH ×3 (08:23→23:32)
[2021-05-06] MEDS: LACTULOSE 20 GM/30 ML SOLUTION UDCUP PO PRN (08:28)
[2021-05-06 10:17] VITALS: BP 113/55
[2021-05-06 15:52] VITALS: BP 101/48
[2021-05-06] MEDS ORDERED: MAGNESIUM CITRATE 300 ML ORAL SOLUTION PO PRN (17:00)
[2021-05-06] MEDS: ERTAPENEM SODIUM 1 GM in SODIUM CHLORIDE 0.9% 50 ML IV SCH (17:47)
[2021-05-06 19:46] VITALS: BP 104/57
[2021-05-06] MEDS: ASPIRIN 325 MG TABLET PO SCH (21:14)
[2021-05-06] MEDS: ATORVASTATIN CALCIUM 40 MG TABLET PO SCH (21:14)
[2021-05-07 00:32] VITALS: BP 107/56
[2021-05-07 05:14] VITALS: BP 113/64
[2021-05-07] MEDS: INSULIN LISPRO 100 UNITS/ML SQ PRN ×4 (06:25→20:28)
[2021-05-07 07:04] LABS: ANION GAP 4 mmol/L (8-16); CALCIUM, TOTAL 8.7 mg/dL (8.8-10.5); CARBON DIOXIDE 30 mmol/L (22-29); CHLORIDE 106 mmol/L (98-107); CREATININE 0.61 mg/dL (0.60-1.30); GLOMERULAR FILTR. RATE CALC > 60 mL/min (>60); GLUCOSE,RANDOM 174 mg/dL (70-110); POTASSIUM 4.5 mmol/L (3.5-5.1); SODIUM SERUM 140 mmol/L (136-145); UREA NITROGEN, BLOOD 6 mg/dL (7-18)
[2021-05-07 07:30] VITALS: BP 127/62
[2021-05-07] MEDS: LACTULOSE 20 GM/30 ML SOLUTION UDCUP PO PRN ×2 (08:20→20:26)
[2021-05-07] MEDS: FAMOTIDINE 20 MG TABLET PO SCH ×2 (08:20→20:26)
[2021-05-07] MEDS: VANCOMYCIN HCL 1.25 GM in DEXTROSE 5%-WATER 250 ML IV SCH ×3 (08:20→23:36)
[2021-05-07] MEDS: DOCUSATE SODIUM 100 MG CAPSULE PO SCH ×2 (08:20→20:26)
[2021-05-07] MEDS: HEPARIN SODIUM,PORCINE 5,000 UNITS/ML VIAL SQ SCH ×3 (08:21→23:36)
[2021-05-07] MEDS: INSULIN GLARGINE,HUM.REC.ANLOG 100 UNITS/ML SQ SCH ×2 (08:22→20:29)
[2021-05-07] MEDS: ONDANSETRON HCL 4 MG/2 ML VIAL IVP PRN ×2 (09:11→16:14)
[2021-05-07 11:34] VITALS: BP 141/71
[2021-05-07] MEDS ORDERED: MINERAL OIL 133 ML ENEMA PR ONE (12:00)
[2021-05-07 15:34] VITALS: BP 145/61
[2021-05-07] MEDS ORDERED: SODIUM CHLORIDE 0.9% 1,000 ML ONE (15:38)
[2021-05-07] MEDS: ERTAPENEM SODIUM 1 GM in SODIUM CHLORIDE 0.9% 50 ML IV SCH (18:47)
[2021-05-07 20:03] VITALS: BP 121/70
[2021-05-07] MEDS: ATORVASTATIN CALCIUM 40 MG TABLET PO SCH (20:26)
[2021-05-07] MEDS: ASPIRIN 325 MG TABLET PO SCH (20:26)
[2021-05-08 00:29] VITALS: BP 120/58
[2021-05-08 04:26] VITALS: BP 130/70
[2021-05-08] MEDS: INSULIN LISPRO 100 UNITS/ML SQ PRN ×4 (06:15→20:19)
[2021-05-08 06:55] LABS: ANION GAP 6 mmol/L (8-16); CALCIUM, TOTAL 8.6 mg/dL (8.8-10.5); CARBON DIOXIDE 29 mmol/L (22-29); CHLORIDE 104 mmol/L (98-107); CREATININE 0.74 mg/dL (0.60-1.30); GLOMERULAR FILTR. RATE CALC > 60 mL/min (>60); GLUCOSE,RANDOM 148 mg/dL (70-110); SODIUM SERUM 139 mmol/L (136-145); UREA NITROGEN, BLOOD 6 mg/dL (7-18)
[2021-05-08 07:45] VITALS: BP 123/69
[2021-05-08] MEDS: FAMOTIDINE 20 MG TABLET PO SCH ×2 (08:09→20:18)
[2021-05-08] MEDS: DOCUSATE SODIUM 100 MG CAPSULE PO SCH ×2 (08:09→20:18)
[2021-05-08] MEDS: HEPARIN SODIUM,PORCINE 5,000 UNITS/ML VIAL SQ SCH ×3 (08:09→23:52)
[2021-05-08] MEDS: INSULIN GLARGINE,HUM.REC.ANLOG 100 UNITS/ML SQ SCH ×2 (08:14→20:18)
[2021-05-08] MEDS: VANCOMYCIN HCL 1.25 GM in DEXTROSE 5%-WATER 250 ML IV SCH (08:17)
[2021-05-08 11:30] VITALS: BP 122/68
[2021-05-08] MEDS: ONDANSETRON HCL 4 MG/2 ML VIAL IVP PRN (16:57)
[2021-05-08] MEDS: ERTAPENEM SODIUM 1 GM in SODIUM CHLORIDE 0.9% 50 ML IV SCH (17:15)
[2021-05-08 19:13] VITALS: BP 126/65
[2021-05-08] MEDS: ASPIRIN 325 MG TABLET PO SCH (20:17)
[2021-05-08] MEDS: ATORVASTATIN CALCIUM 40 MG TABLET PO SCH (20:18)
[2021-05-09 00:06] VITALS: BP 140/66
[2021-05-09 03:28] VITALS: BP 124/70
[2021-05-09 07:55] VITALS: BP 120/70
[2021-05-09] MEDS: FAMOTIDINE 20 MG TABLET PO SCH ×2 (08:39→20:10)
[2021-05-09] MEDS: DOCUSATE SODIUM 100 MG CAPSULE PO SCH ×2 (08:39→20:10)
[2021-05-09] MEDS: HEPARIN SODIUM,PORCINE 5,000 UNITS/ML VIAL SQ SCH ×3 (08:39→23:21)
[2021-05-09] MEDS: INSULIN GLARGINE,HUM.REC.ANLOG 100 UNITS/ML SQ SCH ×2 (08:42→20:11)
[2021-05-09 09:25] LABS: ANION GAP 3 mmol/L (8-16); CALCIUM, TOTAL 9.1 mg/dL (8.8-10.5); CARBON DIOXIDE 31 mmol/L (22-29); CHLORIDE 103 mmol/L (98-107); GLOMERULAR FILTR. RATE CALC > 60 mL/min (>60); GLUCOSE,RANDOM 158 mg/dL (70-110); POTASSIUM 4.7 mmol/L (3.5-5.1); SODIUM SERUM 137 mmol/L (136-145); UREA NITROGEN, BLOOD 6 mg/dL (7-18)
[2021-05-09] MEDS: INSULIN LISPRO 100 UNITS/ML SQ PRN ×3 (10:51→20:12)
[2021-05-09 11:12] VITALS: BP 104/54
[2021-05-09] MEDS ORDERED: FLUCONAZOLE 150 MG TABLET PO ONE (11:30)
[2021-05-09 15:47] VITALS: BP 110/66
[2021-05-09] MEDS: ERTAPENEM SODIUM 1 GM in SODIUM CHLORIDE 0.9% 50 ML IV SCH (17:05)
[2021-05-09] MEDS: ONDANSETRON HCL 4 MG/2 ML VIAL IVP PRN (17:11)
[2021-05-09 19:25] VITALS: BP 117/66
[2021-05-09] MEDS: ASPIRIN 325 MG TABLET PO SCH (20:10)
[2021-05-09] MEDS: ATORVASTATIN CALCIUM 40 MG TABLET PO SCH (20:10)
[2021-05-10 00:07] VITALS: BP 103/55
[2021-05-10] MEDS: MORPHINE SULFATE 2 MG/ML SYRINGE IVP PRN (02:35)
[2021-05-10 03:57] VITALS: BP 101/67
[2021-05-10] MEDS: INSULIN LISPRO 100 UNITS/ML SQ PRN ×4 (05:41→20:30)
[2021-05-10 07:30] VITALS: BP 108/55
[2021-05-10] MEDS: HEPARIN SODIUM,PORCINE 5,000 UNITS/ML VIAL SQ SCH ×3 (08:56→23:17)
[2021-05-10] MEDS: FAMOTIDINE 20 MG TABLET PO SCH ×2 (09:45→20:27)
[2021-05-10] MEDS: INSULIN GLARGINE,HUM.REC.ANLOG 100 UNITS/ML SQ SCH ×2 (09:45→20:29)
[2021-05-10] MEDS: ACETAMINOPHEN 325 MG TABLET PO PRN (09:47)
[2021-05-10] MEDS: ONDANSETRON HCL 4 MG/2 ML VIAL IVP PRN (09:52)
[2021-05-10] MEDS: DOCUSATE SODIUM 100 MG CAPSULE PO SCH ×2 (09:52→20:27)
[2021-05-10 11:52] VITALS: BP 93/54
[2021-05-10 15:37] VITALS: BP 91/55
[2021-05-10] MEDS: ERTAPENEM SODIUM 1 GM in SODIUM CHLORIDE 0.9% 50 ML IV SCH (16:41)
[2021-05-10 19:23] VITALS: BP 100/51
[2021-05-10] MEDS: ASPIRIN 325 MG TABLET PO SCH (20:27)
[2021-05-10] MEDS: ATORVASTATIN CALCIUM 40 MG TABLET PO SCH (20:27)
[2021-05-11 00:07] VITALS: BP 98/58
[2021-05-11 04:08] VITALS: BP 103/58
[2021-05-11] MEDS: INSULIN LISPRO 100 UNITS/ML SQ PRN ×4 (05:41→20:26)
[2021-05-11 07:26] VITALS: BP 106/58
[2021-05-11] MEDS: HEPARIN SODIUM,PORCINE 5,000 UNITS/ML VIAL SQ SCH ×3 (10:12→23:20)
[2021-05-11] MEDS: DOCUSATE SODIUM 100 MG CAPSULE PO SCH ×2 (10:12→20:39)
[2021-05-11] MEDS: FAMOTIDINE 20 MG TABLET PO SCH ×2 (10:12→20:39)
[2021-05-11] MEDS: ACETAMINOPHEN 325 MG TABLET PO PRN ×2 (10:12→20:42)
[2021-05-11] MEDS: INSULIN GLARGINE,HUM.REC.ANLOG 100 UNITS/ML SQ SCH ×2 (10:13→20:26)
[2021-05-11 10:58] VITALS: BP 102/62
[2021-05-11] MEDS ORDERED: FLUCONAZOLE 150 MG TABLET PO ONE (13:45)
[2021-05-11 14:57] VITALS: BP 115/68
[2021-05-11 16:37] LABS: GLUCOMETER DEV NAME(LOC) 5S.1; GLUCOSE,POINT OF CARE 208 MG/DL (70-110)
[2021-05-11 16:37] LABS: GLUCOMETER DEV NAME(LOC) 5S.1; GLUCOSE,POINT OF CARE 145 MG/DL (70-110)
[2021-05-11 16:37] LABS: GLUCOMETER DEV NAME(LOC) 5S.1; GLUCOSE,POINT OF CARE 226 MG/DL (70-110)
[2021-05-11 16:37] LABS: GLUCOMETER DEV NAME(LOC) 5S.1; GLUCOSE,POINT OF CARE 227 MG/DL (70-110)
[2021-05-11 16:38] LABS: GLUCOMETER DEV NAME(LOC) 5S.1; GLUCOSE,POINT OF CARE 206 MG/DL (70-110)
[2021-05-11 16:39] LABS: GLUCOMETER DEV NAME(LOC) 5S.1; GLUCOSE,POINT OF CARE 140 MG/DL (70-110)
[2021-05-11 16:39] LABS: GLUCOMETER DEV NAME(LOC) 5N.1C; GLUCOSE,POINT OF CARE 194 MG/DL (70-110)
[2021-05-11 16:39] LABS: GLUCOMETER DEV NAME(LOC) 5S.1; GLUCOSE,POINT OF CARE 167 MG/DL (70-110)
[2021-05-11] MEDS: ERTAPENEM SODIUM 1 GM in SODIUM CHLORIDE 0.9% 50 ML IV SCH (17:11)
[2021-05-11 17:57] LABS: GLUCOMETER DEV NAME(LOC) 5N.3; GLUCOSE,POINT OF CARE 216 MG/DL (70-110)
[2021-05-11 17:57] LABS: GLUCOMETER DEV NAME(LOC) 5N.3; GLUCOSE,POINT OF CARE 145 MG/DL (70-110)
[2021-05-11 17:57] LABS: GLUCOMETER DEV NAME(LOC) 5N.3; GLUCOSE,POINT OF CARE 231 MG/DL (70-110)
[2021-05-11 17:57] LABS: GLUCOMETER DEV NAME(LOC) 5N.3; GLUCOSE,POINT OF CARE 147 MG/DL (70-110)
[2021-05-11 17:58] LABS: GLUCOMETER DEV NAME(LOC) 5N.3; GLUCOSE,POINT OF CARE 209 MG/DL (70-110)
[2021-05-11 17:59] LABS: GLUCOMETER DEV NAME(LOC) 5N.3; GLUCOSE,POINT OF CARE 194 MG/DL (70-110)
[2021-05-11 17:59] LABS: GLUCOMETER DEV NAME(LOC) 5N.3; GLUCOSE,POINT OF CARE 195 MG/DL (70-110)
[2021-05-11 17:59] LABS: GLUCOMETER DEV NAME(LOC) 5N.3; GLUCOSE,POINT OF CARE 165 MG/DL (70-110)
[2021-05-11 19:56] LABS: GLUCOMETER DEV NAME(LOC) 5N.1C; GLUCOSE,POINT OF CARE 176 MG/DL (70-110)
[2021-05-11 20:11] VITALS: BP 107/59
[2021-05-11 20:17] LABS: GLUCOMETER DEV NAME(LOC) 5S.1; GLUCOSE,POINT OF CARE 169 MG/DL (70-110)
[2021-05-11] MEDS: ATORVASTATIN CALCIUM 40 MG TABLET PO SCH (20:40)
[2021-05-11] MEDS: ASPIRIN 325 MG TABLET PO SCH (20:40)
[2021-05-12 00:40] VITALS: BP 92/56
[2021-05-12 04:45] VITALS: BP 129/66
[2021-05-12] MEDS: INSULIN LISPRO 100 UNITS/ML SQ PRN ×3 (05:58→17:26)
[2021-05-12 06:31] LABS: GLUCOMETER DEV NAME(LOC) 5N.3; GLUCOSE,POINT OF CARE 141 MG/DL (70-110)
[2021-05-12 07:30] VITALS: BP 122/72
[2021-05-12] MEDS: FAMOTIDINE 20 MG TABLET PO SCH (08:03)
[2021-05-12] MEDS: HEPARIN SODIUM,PORCINE 5,000 UNITS/ML VIAL SQ SCH ×2 (08:03→15:31)
[2021-05-12] MEDS: DOCUSATE SODIUM 100 MG CAPSULE PO SCH (08:03)
[2021-05-12] MEDS: INSULIN GLARGINE,HUM.REC.ANLOG 100 UNITS/ML SQ SCH (08:05)
[2021-05-12] MEDS: LACTULOSE 20 GM/30 ML SOLUTION UDCUP PO PRN (08:51)
[2021-05-12] MEDS ORDERED: MINERAL OIL 133 ML ENEMA PR SCH (09:00)
[2021-05-12 11:13] VITALS: BP 106/70
[2021-05-12 11:51] LABS: GLUCOMETER DEV NAME(LOC) 5N.3; GLUCOSE,POINT OF CARE 213 MG/DL (70-110)
[2021-05-12] MEDS: ERTAPENEM SODIUM 1 GM in SODIUM CHLORIDE 0.9% 50 ML IV SCH (15:38)
[2021-05-12] MEDS ORDERED: ATOR40TA71 PO (15:46)
[2021-05-12] MEDS ORDERED: SULF-261 PO (15:46)
[2021-05-12] MEDS ORDERED: INSLAN SQ (15:46)
[2021-05-12 15:50] VITALS: BP 114/76
[2021-05-12 17:47] LABS: GLUCOMETER DEV NAME(LOC) 5N.1C; GLUCOSE,POINT OF CARE 168 MG/DL (70-110)
[2021-05-12 20:32] LABS: GLUCOMETER DEV NAME(LOC) 5S.2B; GLUCOSE,POINT OF CARE 127 MG/DL (70-110)
[2021-05-12 20:32] LABS: GLUCOMETER DEV NAME(LOC) 5S.2B; GLUCOSE,POINT OF CARE 256 MG/DL (70-110)
[2021-05-12 20:32] LABS: GLUCOMETER DEV NAME(LOC) 5S.2B; GLUCOSE,POINT OF CARE 199 MG/DL (70-110)
[2021-05-12 20:32] LABS: GLUCOMETER DEV NAME(LOC) 5S.2B; GLUCOSE,POINT OF CARE 267 MG/DL (70-110)
[2021-05-12 20:32] LABS: GLUCOMETER DEV NAME(LOC) 5S.2B; GLUCOSE,POINT OF CARE 234 MG/DL (70-110)
[2021-05-12 20:33] LABS: GLUCOMETER DEV NAME(LOC) 5S.2B; GLUCOSE,POINT OF CARE 187 MG/DL (70-110)
== END 2021-05-12 18:47 | disposition home or self-care (01) | DRG 720 ==
LOC: EDUNIT# 20:55 → EMS 21:01 → ICU 04-29 00:30 → 5S 04-30 14:50
PROVIDERS: ADMIT Internal Medicine; ATTEND Internal Medicine
PROC: 05HY33Z Insertion of Infusion Device into Upper Vein, Percutaneous Approach (ICD-10-PCS; principal; 2021-05-05)
DX: A41.51 Sepsis due to Escherichia coli [E. coli] (principal); R65.21 Severe sepsis with septic shock; E11.10 Type 2 diabetes mellitus with ketoacidosis without coma; N12 Tubulo-interstitial nephritis, not specified as acute or chronic; E78.5 Hyperlipidemia, unspecified; E66.01 Morbid (severe) obesity due to excess calories; B95.8 Unspecified staphylococcus as the cause of diseases classified elsewhere; T80.818A Extravasation of other vesicant agent, initial encounter; I10 Essential (primary) hypertension; Z20.822 Contact with and (suspected) exposure to COVID-19; E87.1 Hypo-osmolality and hyponatremia; K59.00 Constipation, unspecified; Z79.84 Long term (current) use of oral hypoglycemic drugs; Z83.3 Family history of diabetes mellitus; Z90.49 Acquired absence of other specified parts of digestive tract; Z79.4 Long term (current) use of insulin; Y92.89 Other specified places as the place of occurrence of the external cause; Z68.33 Body mass index [BMI] 33.0-33.9, adult
CPT/HCPCS: 36245; 36569; 36600; 71045; 72158; 74176; 74177; 76937; 80048; 80053; 80061; 80202; 81001; 81002; 82009; 82805; 82962; 83036; 83605; 83735; 83880; 83930; 84100; 84132; 84145; 84439; 84443; 84484; 85025; 85610; 87040; 87077; 87081; 87086; 87205; 93005; 93306; 93970; 97116; 97162; 97530; 97535; 99291; G0378; J0696; J1335; J1644; J1815; J1885; J1956; J2185; J2270; J2405; J3370; J3480; J3490; J7030; J7050; J7060; Q9967; 36415-L1; 36415-TC